=== PATIENT | male | born 1980 | race Caucasian/White ===

== ENCOUNTER → 2018-04-25 | Outpatient (CLI) | payer BC ==
--- NOTE | 2018-04-25 10:44 | CT ---
EXAMINATION TYPE: CT brain wo/w con DATE OF EXAM: 04/25/2018 COMPARISON: None. HISTORY: Migraines, blurred vision, nausea, left hand numbness CT DLP: 2134.9 mGycm Automated Exposure Control for Dose Reduction was Utilized. TECHNIQUE: CT scan of the head is performed without and with IV Contrast, patient injected with 100 m L of Isovue 300. FINDINGS: Noncontrast images show no acute intracranial hemorrhage or midline shift. Sargent-white mat ter differentiation is preserved. The ventricles and sulci are within normal limits in size. Postcont rast images show no suspicious enhancing intraparenchymal mass. The globes are intact and the visuali zed sinuses are clear. IMPRESSION: No suspicious finding seen to account for patient's symptoms detailed above including kofi chandu headaches.
== END | disposition home or self-care (01) ==
LOC: RADCTMAIN 09:55
PROVIDERS: ATTEND Physician Assistant
DX: G43.909 Migraine, unspecified, not intractable, without status migrainosus (principal)
CPT/HCPCS: 70470; Q9967